=== PATIENT | female | born 1965 | race Caucasian/White ===

== ENCOUNTER 2017-02-10 21:26 | Emergency (ER) | payer MEDICAID ==
[~2017-02-10] VITALS: Ht 160 cm; Wt 87.6 kg
[~2017-02-10 21:26] MED LIST: ALBU1.252 AEROSOL; ALBU6.7H INH; ALBU8.5H INH; BUME1TAB17 PO; CARV12.52 PO; FISH1CAP10 PO; IBUP-1724 PO; LISI10TA7 PO; LOVA20TA3 PO; PRED20TA PO; SPIR25TA4 PO; [UNRECOGNIZED DRUG - CODE] PO
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
--- OUTSIDE RECORDS SUMMARY | 2017-02-10 21:32 | XMS REPORT | Continuity of Care Document ---
Author Author [facility] Organization [facility] Address Unknown Phone Unavailable Support Name Relationship Address Phone JOYCELYN LUCAS MD Caregiver [address] [facility] [place] [address] Unavailable TITUS JACOB DO Caregiver [address] [place] [address] Unavailable AFRICASNEHAL MARTINO Next Of Kin [address] [place] [phone] Insurance Providers Guarantor Ofelia Panda Address [address] [place] [id number] Email [email or web address] Payer [facility] Community Plan Policy Number [id number] Subscriber's Name FarzadOfelia Lu Relationship 18 Self Effective Date 16 Expiration Date 16 Advance Directives Directive Response Recorded Date/Time Advanced Directives Type None 02/16/14 8:50pm Ordered Resuscitation Status Full Code 02/16/14 8:25pm Resuscitation Documents on File No 02/16/14 8:50pm Chief Complaint and Reason for Visit Chief Complaint Dyspnea/Respdistress Reason for Visit [id number] Problems Active Problems Medical Problem Onset Date Status RADHA (acute kidney injury) Unknown Abscess Unknown Acute Acute bronchitis due to Rhinovirus Unknown Acute Acute exacerbation of CHF (congestive heart failure) Unknown Acute Acute exacerbation of CHF (congestive heart failure) Unknown Acute Anemia Unknown Acute Asthma Unknown Chronic Blindness of right eye Unknown Chronic Borderline personality disorder Unknown Chronic CAD (coronary artery disease) Unknown Chronic CHF (congestive heart failure) Unknown Chronic COPD (chronic obstructive pulmonary disease) Unknown Acute COPD exacerbation Unknown Acute COPD exacerbation Unknown Resolved DYSPNEA Unknown Acute Degenerative joint disease (DJD) of hip Unknown Chronic Depression Unknown Chronic Exacerbation of asthma Unknown Acute Facial cellulitis Unknown HTN (hypertension) Unknown Chronic Hematuria, microscopic Unknown Chronic History of MRSA infection Unknown Resolved Hx of chemical exposure Unknown Resolved Hyperlipidemia Unknown Chronic Hypertension Unknown Chronic Migraine Unknown Moderate mitral regurgitation Unknown Chronic Moderate to severe pulmonary hypertension Unknown Chronic NSVT (nonsustained ventricular tachycardia) Unknown Acute Non-ischemic cardiomyopathy Unknown Chronic Noncompliance with medication regimen Unknown Chronic Obesity (BMI 30.0-34.9) Unknown Acute PAF (paroxysmal atrial fibrillation) Unknown Chronic Respiratory distress Unknown Acute Severe tricuspid regurgitation by prior echocardiogram Unknown Chronic Suicidal ideation Unknown Resolved Suspected pulmonary embolism Unknown Acute Systolic CHF Unknown Chronic Tachy-reyes syndrome Unknown Chronic Tobacco dependence Unknown Chronic Transaminitis Unknown Acute Uterine mass Unknown Chronic Past Problems Medical Problem Onset Date Acute on chronic systolic heart failure Unknown CHF exacerbation Unknown Elevated troponin I level Unknown Hypomagnesemia Unknown Patient left without being seen Unknown Pleural effusion due to congestive heart failure Unknown Viral pharyngitis Unknown Viral respiratory illness Unknown Medications Current Home Medications Medication Dose Units Route Directions Days Qty Instructions Start Date Albuterol Sulfate 1.25 Mg/3 Ml Vial.neb 1 Vial Aerosol Tx. Every 4-6 Hours as needed for Shortness Of Air/Wheezing 150 Milliliter 11/15/16 Albuterol Sulfate (Proair Hfa 90 Mcg/Actuation) 8.5 Gm Hfa.aer.ad 2 Puff Inhalation Every 6 Hours as needed for Shortness Of Air/Wheezing 30 Days 10/07/15 Albuterol Sulfate (Proventil Hfa 90 Mcg/Actuation) 200 Puff/6.7 G Inha 2 Puff Inhalation Every 4 Hours as needed for Shortness Of Air/Wheezing 11/13/16 Ascorbic Acid (Vitamin C With Ghada Hips) 500 Mg Tablet 1 Tab Oral Daily 11/15/16 Bumetanide 1 Mg Tablet 1 Mg Oral Daily 11/13/16 Carvedilol 12.5 Mg Tablet 12.5 Mg Oral Twice Daily With Meals 08/20 Ibuprofen 200 Mg Tablet 4 Tab Oral Every 4 Hours as needed for Pain 11/15/16 Lisinopril 10 Mg Tablet 10 Mg Oral Daily 11/13/16 Lovastatin 20 Mg Tablet 20 Mg Oral Bedtime 11/13/16 [place]-3 Fatty Acids/Fish Oil (Fish Oil Concentrate Softgel) 1 Each Capsule 1 Cap Oral Daily 11/13/16 Prednisone 20 Mg Tablet 20 Mg Oral Daily 4 Tablet 11/15/16 Spironolactone 25 Mg Tablet 25 Mg Oral Daily 11/13/16 Past Home Medications Medication Directions Ordered Status Albuterol Sulfate 1.25 Mg/3 Ml Vial.neb, 1 Vial Inhalation As Needed Discontinued Bumetanide 1 Mg Tablet, 1 Mg Oral Daily 01/28/16 Discontinued Bumetanide 1 Mg Tablet, 1 Tab Oral Daily 10/03/15 Discontinued Carvedilol 3.125 Mg Tablet, 3.125 Mg Oral Twice A Day 10/03/15 Discontinued Codeine/Promethazine Hcl 5 Ml Syrup, 5 Ml Oral Every 4 Hours for Cough Discontinued Lisinopril 20 Mg Tablet, 20 Mg Oral Daily 10/03/15 Discontinued Lovastatin 10 Mg Tablet, 10 Mg Oral Daily 03/26/15 Discontinued No Regular Meds , 07/13/10 Discontinued Prednisone 20 Mg Tablet, 40 Mg Oral Give With Breakfast 01/29/16 Discontinued Spironolactone 25 Mg Tablet, 1 Tab Oral Daily 10/03/15 Discontinued Social History Social History Problem Response Recorded Date/Time Onset Date Status Chewing Tobacco Status No 03/19/2014 9:55am Not Applicable Not Applicable Hx Substance Use No 11/15/2016 12:26am Not Applicable Not Applicable Hx Alcohol Use Yes 11/15/2016 12:26am Not Applicable Not Applicable Has the pt used tobacco in the last 12 months Yes 03/12/2016 1:04pm Not Applicable Not Applicable Tobacco Usage smoke 03/12/2016 10:38am Not Applicable Not Applicable Query Response Start Date Stop Date Smoking Status Current every day smoker Hospital Discharge Instructions No hospital discharge instructions. Plan of Care Discharge Date 11/15/16 2:00am Disposition 01 DISCHARGED HOME, SELF-CARE Condition at Discharge Improved Instructions/Education Provided DI for Chronic Obstructive Pulmonary Disease Prescriptions See Medication Section Referrals TITUS JACOB DO Address: [address] [place] [address] [phone] Additional Instructions/Education Albuterol nebulized treatments at home, double treatments every hour until wheezing resolves. Prednisone, take all three tablets from the pack later this morning, then one daily for 4 additional days (prescription). See Dr. Jacob if not improving, or return immediately for any worsening. [place] 5mg one at night before bed for cough Care Plan and Goals Physician Care Plan Problem: COPD exacerbation Goal: Follow up with primary care provider Instructions: Take medications and follow care plan as discussed/written Albuterol nebulized treatments at home, double treatments every hour until wheezing resolves. Prednisone, take all three tablets from the pack later this morning, then one daily for 4 additional days (prescription). See Dr. Jacob if not improving, or return immediately for any worsening. [place] 5mg one at night before bed for cough Functional Status No functional status results. Allergies, Adverse Reactions, Alerts Allergen Type Severity Reaction Status Last Updated Hydrocodone Adverse Reaction Intermediate VOMITTING AND ITCHING Active 08/20 Nitrofurantoin Allergy Unknown RASH Active 11/13/16 Latex Allergy Severe "GIVES ME BLOOD POISONING" Active 11/13/16 Immunizations Query Response on File Recorded Date/Time Hx Influenza Vaccination No 03/12/16 1:04pm Hx Pneumococcal Vaccination Y last year 03/12/16 1:04pm Hx Influenza Vaccination No 03/12/16 1:04pm Influenza Vaccine Hx 09/201611/15/16 12:26am Vital Signs Acute Vital Signs Vital Response Date/Time Temperature (Fahrenheit) 98.0 deg F (96.8 - 99.1) 11/15/2016 12:15am Temperature (Calculated Celsius) 36.42702 degrees C (36.0 - 37.3) 11/15/2016 12:15am Pulse Rate (adult) 95 bpm (60 - 100) 11/15/2016 12:15am Respiratory Rate 30 breaths/min (10 - 20) 11/15/2016 12:15am O2 Sat by Pulse Oximetry 97 % (90 - 100) 11/15/2016 12:15am Blood Pressure 176/92 mm Hg 11/15/2016 12:15am Height (Feet) 5 feet 11/15/2016 12:15am Height (Inches) 3.00 inches 11/15/2016 12:15am Weight (Kilograms) 84.400 kg 11/15/2016 12:15am Body Mass Index (BMI) 32.0 11/15/2016 12:15am Results Laboratory Results Test Name Result Units Flags Reference Collection Date/Time Result Date/ Time Comments White Blood Count 6.9 T/MM3 4.5-11.0 11/13/2016 8:19pm 11/13/2016 8: 25pm Red Blood Count 3.79 M/MM3 L 4.00-5.20 11/13/2016 8:19pm 11/13/2016 8: 25pm Hemoglobin 10.6 GM/DL L 12-16 11/13/2016 8:19pm 11/13/2016 8:25pm Hematocrit 33.8 % L 36-46 11/13/2016 8:11/13/2016 8:25pm Mean Corpuscular Volume 89.2 UM3 80-100 11/13/2016 8:11/13/2016 8: 25pm Mean Corpuscular Hemoglobin 28.0 UUG 26-34 11/13/2016 8:2016 8:25pm Mean Corpuscular Hemoglobin Concent 31.4 GM/DL 31-37 11/13/2016 8:11/13/2016 8:25pm RDW Standard Deviation 50.5 FL H 36.9-50.2 11/13/2016 8:11/13/2016 8:25pm Platelet Count 253 T/MM3 130-400 11/13/2016 8:11/13/2016 8:25pm Mean Platelet Volume 10.0 UM3 9.4-12.4 11/13/2016 8:11/13/2016 8: 25pm Neutrophils (%) (Auto) 79.0 % H 33-66 11/13/2016 8:11/13/2016 8: 25pm Lymphocytes (%) (Auto) 9.6 % L 23-45 11/13/2016 8:11/13/2016 8: 25pm Monocytes (%) (Auto) 7.8 % 0-9.0 11/13/2016 8:11/13/2016 8:25pm Eosinophils (%) (Auto) 3.2 % 0-4 11/13/2016 8:11/13/2016 8:25pm Basophils (%) (Auto) 0.3 % 0-2 11/13/2016 8:11/13/2016 8:25pm Immature Granulocyte % (Auto) 0.1 % 0.0-0.5 11/13/2016 8:2016 8:25pm Absolute Neutrophils (auto) 5.4 T/MM3 1.8-7.7 11/13/2016 8:2016 8:25pm Absolute Lymphocytes (auto) 0.7 T/MM3 L 1-4.8 11/13/2016 8:2016 8:25pm Absolute Monocytes (auto) 0.5 T/MM3 0-0.8 11/13/2016 8:11/13/2016 8:25pm Absolute Eosinophils (auto) 0.2 T/MM3 0-0.5 11/13/2016 8:2016 8:25pm Absolute Basophils (auto) 0.0 T/MM3 0-0.2 11/13/2016 8:11/13/2016 8:25pm Absolute Immature Granulocyte (auto 0.01 T/MM3 0.00-0.03 11/13/2016 8: 11/13/2016 8:25pm Icterus Index < 2 0-7 11/13/2016 8:11/13/2016 8:34pm Chemistry Specimen Hemolysis < 15 0-25 11/13/2016 8:11/13/2016 8 :34pm 0-25: Specimen Exhibited No Hemolysis. Turbidity < 20 0-20 11/13/2016 8:11/13/2016 8:34pm Sodium Level 142 MEQ/L 134-144 11/13/2016 8:11/13/2016 8:34pm Potassium Level 4.5 MEQ/L 3.6-5 11/13/2016 8:11/13/2016 8:34pm Chloride Level 107 MEQ/L 98-107 11/13/2016 8:11/13/2016 8:34pm Carbon Dioxide Level 27 MEQ/L 22-30 11/13/2016 8:11/13/2016 8: 34pm Anion Gap 8 MEQ/L 5-15 11/13/2016 8:11/13/2016 8:34pm Blood Urea Nitrogen 18.0 MG/DL H 7-17 11/13/2016 8:11/13/2016 8: 34pm Creatinine 1.2 MG/DL 0.7-1.2 11/13/2016 8:11/13/2016 8:34pm BUN/Creatinine Ratio 15 RATIO 6-26 11/13/2016 8:11/13/2016 8:34pm Glomerular Filtration Rate Calc 48 11/13/2016 8:11/13/2016 8: 34pm Glucose Level 106 MG/DL 65-110 11/13/2016 8:11/13/2016 8:34pm Calculated Osmolality 275 MOSM/KG 261-280 11/13/2016 8:11/13/2016 8:34pm Calcium Level 9.0 MG/DL 8.4-10.2 11/13/2016 8:19pm 11/13/2016 8:34pm Total Bilirubin 0.40 MG/DL 0.20-1.30 11/13/2016 8:pm 11/13/2016 8: 34pm Alkaline Phosphatase 73 U/L 38-126 11/13/2016 8:pm 11/13/2016 8:34pm Total Protein 6.2 G/DL L 6.3-8.2 11/13/2016 8:pm 11/13/2016 8:34pm Albumin 3.5 G/DL 3.5-5.0 11/13/2016 8:pm 11/13/2016 8:34pm Globulin 2.7 G/DL 2.4-3.6 11/13/2016 8:11/13/2016 8:34pm Albumin/Globulin Ratio 1.3 RATIO 1.1-2.2 11/13/2016 8:pm 11/13/2016 8 :34pm Aspartate Amino Transf (AST/SGOT) 27 U/L 14-36 11/13/2016 8:2016 8:34pm Alanine Aminotransferase (ALT/SGPT) 34 U/L 9-52 11/13/2016 8:pm 11/13 8:34pm Troponin I 0.034 ng/ml 0-0.12 11/13/2016 8:11/13/2016 8:45pm Troponin values with a difference of 55% increase from orginal troponin value represent a true biological DELTA value. (%increase Calc=Orginal Troponin value, divided by subsequent Troponin value, multiplied by 100) ZY-Bwq-G-Type Natriuretic Peptide 36745 PG/ML H 0-175 11/13/2016 8:pm 11/13/2016 8:45pm Rule in cut points: <50 years old=450; 50-75 years old=900; >75 years old=1800; When utilizing ProBNP rule-in cut points, adjustment for impaired renal function is typically not required. Influenza Type A Antigen NEGATIVE NEGATIVE 11/13/2016 8:52pm 2016 9:16pm Negative for Flu A protein antigen. Assay sensitivity is 90%. Influenza Type B Antigen NEGATIVE NEGATIVE 11/13/2016 8:52pm 2016 9:16pm Negative for Flu B protein antigen. Assay sensitivity is 90%. Procedures No known history of procedures. Encounters Encounter Location Arrival/Admit Date Discharge/Depart Date Attending Provider Departed Emergency Room [facility] 11/15/16 12:09am 11/15/16 2: 00am JOYCELYN LUCAS MD Departed Emergency Room [facility] 11/13/16 7:40pm 11/13/16 10: 21pm JAYLIN HOANG MD Departed Emergency Room [facility] 11/12/16 1:20pm 11/12/16 2: 40pm CRYSTAL SANCHES MD Recent Diagnosis
--- OUTSIDE RECORDS SUMMARY | 2017-02-10 21:32 | XMS REPORT ---
Author Author Kenneth Key [facility] Address [address] [place] [address] Care Team Providers Care Precision Dancer Name Role Phone Kenneth Key Unavailable [phone] PROBLEMS Type Condition ICD9-CM Code TAQ50-HA Code Onset Dates Condition Status SNOMED Code Problem Nicotine dependence, unspecified, uncomplicated F17.200 Active 932213499 Problem Mixed hyperlipidemia E78.2 Active 948692725 Problem Chronic systolic (congestive) heart failure I50.22 Active 084322080 Problem Hyperlipidemia, unspecified E78.5 Active 83132695 Problem Heart failure, unspecified I50.9 Active 51109003 Problem Essential (primary) hypertension I10 Active 77298458 Problem Unspecified asthma, uncomplicated J45.909 Active 16344626 Problem Chronic obstructive pulmonary disease, unspecified J44.9 Active 18787784 ALLERGIES Unknown Allergies SOCIAL HISTORY No smoking Hx information available PLAN OF CARE VITAL SIGNS MEDICATIONS Unknown Medications RESULTS No Results PROCEDURES No Known procedures IMMUNIZATIONS No Known Immunizations
[2017-02-10 22:05] VITALS: Ht 160 cm; Wt 87.6 kg
--- NOTE | 2017-02-10 23:21 | NUR ---
PROVIDER DR AGUILERA IN ROOM W/ PT.
--- NOTE | 2017-02-10 23:29 | ERPDOC ---
Departure Disposition Decision Date: Feb 11, 2017 Disposition Decision Time: 00:45 Disposition: 01 DISCHARGED HOME, SELF-CARE Impression Impression Impression: Primary Impression: CHF exacerbation Congestive heart failure type: unspecified congestive heart failure type Qualified Codes: I50.9 - Heart failure, unspecified Severity: Moderate Condition: Improved Seen By: Physician only Referrals: TITUS JACOB DO (Family) 1 Day Patient Instructions: [facility] [place] Congestive Heart Failure Problems/Meds/Labs Reviewed?: Yes Medications reviewed and manag: Yes Additional Instructions: You have had a worsening of your CHF without the Bumex. Take the medication as prescribed. Follow up with your doctor tomorrow. Follow up care ordered?: Yes Mental Status: Alert, Oriented Scripts Bumetanide (Bumetanide) 1 Mg Tablet 1 TAB PO DAILY, #30 TAB 5 Refills Prov: MARCHNANCY DO 02/11/17 HPI - Cardiac General Chief Complaint: Lower Extremity Pain Stated Complaint: SWELLING BOTH LEGS Time Seen by Provider: 23:21 Source: patient Exam Limitations: no limitations HPI - Cardiac General Initial Comments 51yo woman presents to the ER for b/l LE swelling. Pt has known CHF; has been taking 1mg bumex daily, but ran out of her meds 2 days ago. Pt is a [facility]; does not feel that she can afford to wait to be seen to get her meds refilled - is starting to have some dyspnea/orthopnea. Occurred At: home Onset/Timing: Gradual, Getting worse Duration: other Severity: moderate Nitro Today/Relief: no nitro taken today Aspirin Today: contraindicated Associated Symptoms: shortness of breath Hx of Similar Symptoms: Yes Allergies: Coded Allergies: latex (Verified Allergy, Severe, "GIVES ME BLOOD POISONING", 02/11/17) nitrofurantoin (Verified Allergy, Unknown, RASH, 02/11/17) hydrocodone (Verified Adverse Reaction, Intermediate, VOMITTING AND ITCHING, 02/11/17) Past History Patient Surgical History -heart cath 06/05/13: Normal angiogram, severe LV systolic dysfunction with EF of 25%, mild to moderate mitral insufficiency -spontaneous vaginal delivery X4 -mammograms Past Medical History Metabolic: hypercholesterolemia, hypertension ENMT: allergies, vision loss, vision problems Cardiac: A-fib, CAD, CHF, echocardiogram Hx Echocardiogram: Yes Date Last Echocardiogram: Oct 04, 2015 Ejection Fraction (%): 25 Respiratory: asthma Female: renal insufficiency Integumentary: rashes Infectious: other Psychological: other Surgical History Cardiac: cardiac cath Family History Family PMH: FOUND: CAD, CHF, [place] Vaccines Hx Influenza Vaccination: No Hx Pneumococcal Vaccination: Yes (last year) Social History # of Packs/Tins per Day: 1/2 Review of Systems Cardiovascular Cardiac: dyspnea on exertion, orthopnea Pulmonary Respiratory: dyspnea Musculoskeletal Comments B/l swelling Physical Exam General General Nourishment: well nourished, well developed, appears stated age, no acute distress, adult, obese General Body Habitus: well groomed Vitals and Pain First Documented Vital Signs Date Time Temp Pulse Resp B/P Pulse Ox O2 Delivery O2 Flow Rate FiO2 02/10/17 22:05 98.3 65 12 150/71 98 Room Air Weight: Kilograms: Height (feet): 5 Height (inches): 3.00 Triage Pain Scale: RN VS reviewed by Provider: Yes Normal Exams: Head: Normocephalic w/o trauma Eyes: Pupils are PERRLA w/ EOMI, No scleral icterus, irritation ENMT: No facial trauma, nasal exudates, pharyngeal erythema Neck: Full range of motion, without adenopathy, JVD Lymphatic: No lymphadenopathy Musculoskeletal: No tenderness, or deformity noted Integumentary: No rashes, hives, or bruising noted Neurologic: Patient is alert, and oriented Psychiatric: Patient exhibits, appropriate attention Respiratory (brief) Respiratory: FOUND: equal bilaterally, rales, symmetrical, NOT FOUND: clear all vang, wheezes Comments Fine crackles in B/l LL's Cardiovascular (brief) Cardiac: FOUND: regular rate, regular rhythm, NOT FOUND: click, gallop, murmur , pedal edema, peripheral edema, rub Capillary Refill: <2 sec Pulses: all distal extremities, equal, strong Abdomen (brief) Abdominal Brief: FOUND: bowel normo active x4, soft, NOT FOUND: distended, hepatosplenomegaly, pulsatile mass, tender Musculoskeletal (brief) Comments 3+ pitting edema b/l to mid-calf Differential Diagnoses Considering: Atrial Fibrillation, CHF, Hyperventilation, PSVT, Pulmonary Edema Progress Results/Orders Orders Procedure Category Date Status Time Probnp LAB 02/10/17 Complete 23:24 EKG EKG 02/10/17 Logged 23:24 Chest 1 View RAD 02/10/17 Taken 23:24 Iv Lock (Ed Only) EDM 02/10/17 Transmitted 23:24 Bumetanide (Bumex PHA 02/10/17 Complete Inj. 2.5 Mg/10 Ml) 23:30 Lab Results Laboratory Tests Test 02/10/17 23:49 ZG-Biz-V-Type Natriuretic Peptide 3700PG/ML Medications Current ED Medications Bumetanide (Bumex Inj. 2.5 Mg/10 ml) 2 mg O ONCE IV Last administered on t 00:15; Start 02/10/17 at 23:30; Stop 02/10/17 at 23:31; Status DC Progress Progress Pt markedly improved following IV bumex. Hx, PE, labs, and rads all c/w worsening CHF following discontinuation of bumex. Will give pt 30 day supply of med. F/u with PCM tomorrow. Pt voiced understanding. EKG EKG : Rate: 60-100 Rhythm: sinus Azalea: left QRS: LBBB Intervals: normal ST/T: normal Interpreted by: signing physician Xray Xray : Xray: CXR Portable Interpretation: Abnormal (Mild pulm congestion), Interpreted by NANCY Hooker DO Feb 10, 2017 23:29
[2017-02-10] MEDS ORDERED: BUMETANIDE 2.5mg INJECTION IV ONE (23:30)
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
--- NOTE | 2017-02-11 00:10 | NUR ---
XRAY XRAY IN ROOM FOR PORTABLE CHEST.
[2017-02-11] MEDS ORDERED: BUME1TAB17 PO (00:46)
[2017-02-11 01:01] VITALS: BP 141/64; PULSE 63; RESP 16; TEMP 98; O2SAT 100
--- NOTE | 2017-02-11 01:01 | NUR ---
DISCHARGE PT GIVEN INSTRUCTIONS FOR CONT CARE 0F CHF W/ RX BUMEX. PT VERBALIZED UNDERSTANDING AND SIGNED FORM. PT LEFT ER AMBULATORY W/ NO ASSIST, ALERT, VS CHARTED AND CONDITION IMPROVED AND NO ACUTE DISTRESS.
--- NOTE | 2017-02-11 08:06 | DI ---
Indication: ITS.REASON: Swelling PROCEDURE: CHEST 1 VIEW: Encounter: Initial Comparison: November 13, 2016 FINDINGS: The lungs are clear. There is no abnormal airspace opacity, pleural effusion or pneumothorax identified. The heart size, pulmonary vasculature and mediastinum are unchanged. IMPRESSION: No acute cardiopulmonary abnormality. .
== END 2017-02-11 01:01 | disposition home or self-care (01) ==
LOC: ED 21:26
DX: I11.0 Hypertensive heart disease with heart failure (principal); I50.9 Heart failure, unspecified; F17.200 Nicotine dependence, unspecified, uncomplicated
CPT/HCPCS: 83880; 93005